=== PATIENT | male | born 1975 | race American Indian/Alaskan Native ===

== ENCOUNTER 2017-05-16 11:36 | Observation (INO) | payer OTHER ==
[2017-05-16 12:16] VITALS: BMI 24.0
[2017-05-16] MEDS ORDERED: Sodium Chloride 0.9% 1,000 ML IV STA ×2 (12:39→13:38)
--- NOTE | 2017-05-16 12:53 | ED PDOC ---
Arrival/HPI - General Chief Complaint: Flu-like Symptoms Time Seen by Provider: 05/16/17 12:38 Historian: Patient - History of Present Illness Narrative History of Present Illness (Text): 05/16/17 12:52 A 41 year old male, with HIV, CD4 and viral load unknown, presents to the emergency department complaining of generalized myalgias for the past 3 days. Patient notes decreased PO intake and episodes of non-bloody diarrhea. He reports sick contact at home, states his partner had similar symptoms 1 week ago. Patient denies any fever, chills, nausea, vomiting, abdominal pain, chest pain, shortness of breath, cough, headache, dizziness or any other complaints. Patient did not receive the flu shot this year. 05/16/17 13:46 Time/Duration: Other (3 days) Symptom Course: Unchanged Quality: Other Context: Home Past Medical History - Provider Review Nursing Documentation Reviewed: Yes - Infectious Disease Hx of Infectious Diseases: None - Tetanus Immunization Tetanus Immunization: Up to Date - Past Medical History Past Medical History: No Previous - Cardiac Hx Cardiac Disorders: No - Pulmonary Hx Respiratory Disorders: No - Neurological Hx Neurological Disorder: No - HEENT Hx HEENT Disorder: No - Renal Hx Renal Disorder: No - Endocrine/Metabolic Hx Endocrine Disorders: No - Hematological/Oncological Hx Blood Disorders: No - Integumentary Hx Dermatological Disorder: No - Musculoskeletal/Rheumatological Hx Musculoskeletal Disorders: No - Gastrointestinal Hx Gastrointestinal Disorders: No - Genitourinary/Gynecological Hx Genitourinary Disorders: No - Psychiatric Hx Psychophysiologic Disorder: No Hx Substance Use: Yes (marijuana) - Past Surgical History Past Surgical History: No Previous - Surgical History Hx Musculoskeletal Surgery: Yes (left arm) - Anesthesia Hx Anesthesia: Yes Hx Anesthesia Reactions: No Hx Malignant Hyperthermia: No - Suicidal Assessment Feels Threatened In Home Enviroment: No Family/Social History - Physician Review Nursing Documentation Reviewed: Yes Family/Social History: No Known Family HX Smoking Status: Current Some Days Smoker Hx Alcohol Use: Yes Frequency of alcohol use: Few days per week Hx Substance Use: Yes (marijuana) Allergies/Home Meds Allergies/Adverse Reactions: Allergies No Known Allergies Allergy (Verified 05/16/17 12:16) Home Medications: Home Meds Medication Instructions Recorded Confirmed No Known Home Med 05/16/17 05/16/17 Review of Systems - Physician Review All systems were reviewed & negative as marked: Yes - Review of Systems Constitutional: absent: Fevers, Night Sweats Respiratory: absent: SOB, Cough Cardiovascular: absent: Chest Pain Gastrointestinal: Diarrhea, Appetite Changes (decrease PO intake). absent: Abdominal Pain, Nausea, Vomiting Musculoskeletal: Myalgias Neurological: absent: Headache, Dizziness Physical Exam Vital Signs Reviewed: Yes Vital Signs Temp Pulse Resp BP Pulse Ox 05/16/17 14:22 84 18 108/42 L 100 05/16/17 12:08 99.1 F 109 H 20 90/61 L 97 Temperature: Afebrile Blood Pressure: Hypotensive Pulse: Tachycardic Respiratory Rate: Normal Appearance: Positive for: Well-Appearing, Non-Toxic, Comfortable Pain Distress: None Mental Status: Positive for: Alert and Oriented X 3 - Systems Exam Head: Present: Atraumatic, Normocephalic Pupils: Present: PERRL Extroacular Muscles: Present: EOMI Conjunctiva: Present: Normal Mouth: Present: Moist Mucous Membranes Neck: Present: Normal Range of Motion Respiratory/Chest: Present: Clear to Auscultation, Good Air Exchange. No: Respiratory Distress, Accessory Muscle Use Cardiovascular: Present: Normal S1, S2, Tachycardic. No: Murmurs Abdomen: Present: Normal Bowel Sounds. No: Tenderness, Distention, Peritoneal Signs Back: Present: Normal Inspection Upper Extremity: Present: Normal Inspection. No: Cyanosis, Edema Lower Extremity: Present: Normal Inspection. No: Edema Neurological: Present: GCS=15, CN II-XII Intact, Speech Normal Skin: Present: Warm, Dry, Normal Color. No: Rashes Psychiatric: Present: Alert, Oriented x 3, Normal Insight, Normal Concentration Medical Decision Making ED Course and Treatment: 05/16/17 12:52 Impression: A 41 year old male with generalized myalgias, decrease PO intake and diarrhea Plan: -- Chest xray -- EKG -- Labs -- Rapid flu -- Toradol and IV fluids -- Reassess and disposition Progress Notes: 05/16/17 13:48 EKG shows NSR at 86bpm with LVH. Non specific St changes. Labs show BEATRIS with bun/creatinine of 55/3.3. Now reporting hx of HIV. Flu negative. cxray negative. Stool cultures as well as CD4 and viral load added. Will transfer to med/sx observation under Dr. Palomo. Nephrology and ID consult placed. 05/16/17 15:04 - Lab Interpretations Lab Results: 05/16/17 12:45 05/16/17 12:45 Lab Results 05/16/17 12:45: Sodium 136, Potassium 3.9, Chloride 99, Carbon Dioxide 21, Anion Gap 19, BUN 55 H, Creatinine 3.3 H, Est GFR ( Amer) 25, Est GFR ( Non-Af Amer) 21, Random Glucose 122 H, Calcium 9.5, Phosphorus 4.5, Magnesium 2.1, Total Bilirubin 0.6, AST 39, ALT 26, Alkaline Phosphatase 82, Troponin I < 0.01, Total Protein 8.8 H, Albumin 3.9, Globulin 4.9, Albumin/Globulin Ratio 0.8 L, Lipase 220 05/16/17 12:45: Influenza Typ A,B (EIA) Negative for flu a/b 05/16/17 12:45: WBC 7.8, RBC 4.56, Hgb 12.7 L, Hct 38.4 L, MCV 84.2, MCH 27.9, MCHC 33.1, RDW 14.5, Plt Count 307, MPV 9.3, Gran % 46.1 L, Lymph % (Auto) 35.0 , [place] % (Auto) 18.4 H, Eos % (Auto) 0.1 L, Baso % (Auto) 0.4, Gran # 3.60, Lymph # 2.7, [place] # 1.4 H, Eos # 0.0, Baso # 0.03 I have reviewed the lab results: Yes - RAD Interpretation Radiology Orders: 05/16/17 12:38 CHEST TWO VIEWS (PA/LAT) [RAD] Stat - Medication Orders Current Medication Orders: Sodium Chloride (Sodium Chloride 0.9%) 1,000 mls @ 125 mls/hr IV .Q8H JEANNETTE Discontinued Medications Sodium Chloride (Sodium Chloride 0.9%) 1,000 mls @ 999 mls/hr IV .Q1H1M STA Stop: 05/16/17 13:39 Last Admin: 05/16/17 12:53 Dose: 999 mls/hr eMAR Start Stop Document 05/16/17 12:53 SE (Rec: 05/16/17 12:53 [email or web address] Intravenous Solution Start Date 05/16/17 Start Time 12:53 Sodium Chloride (Sodium Chloride 0.9%) 1,000 mls @ 999 mls/hr IV .Q1H1M STA Stop: 05/16/17 14:38 Last Admin: 05/16/17 14:05 Dose: 999 mls/hr eMAR Start Stop Document 05/16/17 14:05 SE (Rec: 05/16/17 14:05 [email or web address] Intravenous Solution Start Date 05/16/17 Start Time 14:05 Sodium Chloride (Sodium Chloride 0.9%) 1,000 mls @ 100 mls/hr IV .Q10H JEANNETTE Ketorolac Tromethamine (Toradol) 30 mg IVP STAT STA Stop: 05/16/17 12:40 Last Admin: 05/16/17 12:54 Dose: 30 mg MAR Pain Assessment Document 05/16/17 12:54 SE (Rec: 05/16/17 12:54 [email or web address] Pain Reassessment Is this a pain reassessment? No Sleep Is patient sleeping during reassessment? No Presence of Pain Presence of Pain Yes Pain Scale Used Pain Scale Used Numeric IVP Administration Document 05/16/17 12:54 SE (Rec: 05/16/17 12:54 [email or web address] Charges for Administration # of IVP Administrations 1 - Scribe Statement The provider has reviewed the documentation as recorded by the Jessica Durand Provider Scribe Attestation: All medical record entries made by the Scribe were at my direction and personally dictated by me. I have reviewed the chart and agree that the record accurately reflects my personal performance of the history, physical exam, medical decision making, and the department course for this patient. I have also personally directed, reviewed, and agree with the discharge instructions and disposition. Disposition/Present on Arrival - Present on Arrival Any Indicators Present on Arrival: No History of DVT/PE: No History of Uncontrolled Diabetes: No Urinary Catheter: No History of Decub. Ulcer: No History Surgical Site Infection Following: None - Disposition Have Diagnosis and Disposition been Completed?: Yes Diagnosis: Acute kidney injury, Diarrhea Disposition: HOSPITALIZED Disposition Time: 13:48 Patient Plan: Observation Patient Problems: Current Active Problems Problem Status Onset Acute kidney injury Acute Diarrhea Acute Condition: FAIR
[2017-05-16 13:06] LABS: BASO # 0.03 K/mm3 (0.0-2.0); BASO % 0.4 % (0.0-3.0); EOS % 0.1 % (1.5-5.0); GRAN # 3.6 (1.4-6.5); GRAN % 46.1 % (50.0-68.0); HEMOGLOBIN 12.7 g/dL (14.0-18.0); LYMPH # 2.7 (1.2-3.4); MEAN CELL VOLUME 84.2 fl (80.0-105.0); MEAN CORPUSCULAR HEMOGLOBIN 27.9 pg (25.0-35.0); MEAN CORPUSCULAR HGB CONC 33.1 g/dl (31.0-37.0); MEAN PLATELET VOLUME 9.3 fl (7.0-11.0); MONO # 1.4 (0.1-0.6); MONO % 18.4 % (1.0-6.0); RBC 4.56 10^6/uL (3.5-6.1); RED CELL DISTRIBUTION WIDTH 14.5 % (11.5-14.5); WHITE BLOOD COUNT 7.8 10^3/ul (4.5-11.0)
[2017-05-16 13:32] LABS: TROPONIN I < 0.01 ng/mL
[2017-05-16 13:35] LABS: ALB/GLOB RATIO 0.8 (1.1-1.8); ALBUMIN 3.9 g/dL (3.0-4.8); ALT/SGPT 26 U/L (7-56); AST/SGOT 39 U/L (17-59); BLOOD UREA NITROGEN 55 mg/dL (7-21); CALCIUM 9.5 mg/dL (8.4-10.5); GFR AFRICAN-AMERICAN 25; GFR NON-AFRICAN AMERICAN 21; LIPASE 220 U/L (23-300); MAGNESIUM 2.1 mg/dL (1.7-2.2)
[2017-05-16] MEDS ORDERED: Sodium Chloride 0.9% 1,000 ML IV SCH (14:00)
--- NOTE | 2017-05-16 14:32 | CP.PCM.CON ---
History of Present Illness - History of Present Illness History of Present Illness: Initial Nephrology Consultation: Assessment: critical Acute Kidney Injury (N17.9) likely due to GI volume loss, hypotension, acute gastroenteritis HIV Plan No acute need for renal replacement therapy at this time. maintain hemodynamic stable. No ACEI/ARB due to BEATRIS Monitor Input/Output, daily weights and renal function with basic metabolic panel IVF as normal saline @ 125 ml/hr. can give NS bolus as needed if BP low Check urine analysis, spot protein/creatinine , urine sodium/cr and renal sonogram.check CPK, uric acid. Dose meds/antibiotics for reduced GFR. Avoid fleets enema/magnesium based laxatives. Avoid nephrotoxins/NSAIDs/ iodinated contrast (unless needed emergently) Glycemic control Further work up/management as per primary team Thanks for allowing me to participate in care of your patient. Will follow patient with you. Please call if any Qs. d/w team Dr Toribio Gill Office: [phone] Chief Complaint; loose stool HPI: Pt is a 41 M with hx of HIV nont on meds presented with complaints of multiple episode of watery loose stool for last 3 days. had decreased oral intake. renal consult for BEATRIS eval Denies OTC/herbal meds or NSAIDs No recent iodinated contrast exposure. has obvious episodes of low BP. pt not aware about kidney problem in past ROS: Cardiovascular: No chest pain. Pulmonary: No shortness of breath Gastrointestinal: c/o abdominal pain c/o nausea. No vomiting. had loose stool Genitourinary: No pain while urinating. Denies blood in urine. All other negative Physical Examination: General Appearance: Comfortable, in no acute respiratory distress, co-operative . Vitals reviewed and noted as below Head; Atraumatic, normocephalic ENT: no ulcers no thrush. Tongue is midline. Oropharynx: no rash or ulcers. EYES: Pupils are equal, round and reactive to light accommodation. Eye muscles and extraocular movement intact. Sclera is anicteric. Neck; supple no lymphadenopathy, no thyromegaly or bruit Lungs: Normal respiratory rate/effort. Breath sounds bilateral equal and clear Heart: Normal rate. s1s2 normal. No rub or gallop. Extremities: no edema. No varicose veins Neurological: Patient is alert, awake and oriented to person, place and time. No focal deficit. Strength bilateral appropriate and equal Skin: Warm and dry. Normal turgor. No rash. Palpitation: Normal elasticity for age Abdomen: Abdomen is soft. Bowel sounds +. There is no abdominal tenderness, no guarding/rigidity no organomegaly Psych: normal insight and normal affect/mood MSK: no joint tenderness or swelling. Digits and nails normal, no deformity : kidney or bladder not palpable Labs/imaging reviewed. Past medical history, past surgical history, family history, social history, allergy reviewed and noted as below Family hx: no hx of CKD. Rest non-contributory Past Patient History - Infectious Disease Hx of Infectious Diseases: None - Tetanus Immunizations Tetanus Immunization: Up to Date - Past Social History Smoking Status: Current Some Days Smoker - CARDIAC Hx Cardiac Disorders: No - PULMONARY Hx Respiratory Disorders: No - NEUROLOGICAL Hx Neurological Disorder: No - HEENT Hx HEENT Problems: No - RENAL Hx Chronic Kidney Disease: No - ENDOCRINE/METABOLIC Hx Endocrine Disorders: No - HEMATOLOGICAL/ONCOLOGICAL Hx Blood Disorders: No - INTEGUMENTARY Hx Dermatological Problems: No - MUSCULOSKELETAL/RHEUMATOLOGICAL Hx Musculoskeletal Disorders: No - GASTROINTESTINAL Hx Gastrointestinal Disorders: No - GENITOURINARY/GYNECOLOGICAL Hx Genitourinary Disorders: No - PSYCHIATRIC Hx Psychophysiologic Disorder: No Hx Substance Use: Yes (marijuana) - SURGICAL HISTORY Hx Musculoskeletal Surgery: Yes (left arm) - ANESTHESIA Hx Anesthesia: Yes Hx Anesthesia Reactions: No Hx Malignant Hyperthermia: No Meds Allergies/Adverse Reactions: Allergies Allergy/AdvReac Type Severity Reaction Status Date / Time No Known Allergies Allergy Verified 05/16/17 12:16 - Medications Medications: Current Medications Sodium Chloride (Sodium Chloride 0.9%) 1,000 mls @ 999 mls/hr IV .Q1H1M STA Stop: 05/16/17 14:38 Last Admin: 05/16/17 14:05 Dose: 999 mls/hr Sodium Chloride (Sodium Chloride 0.9%) 1,000 mls @ 125 mls/hr IV .Q8H JEANNETTE Results - Vital Signs Recent Vital Signs: Last Vital Signs Temp 99.1 F 05/16/17 12:08 Pulse 84 05/16/17 14:22 Resp 18 05/16/17 14:22 BP 108/42 L 05/16/17 14:22 Pulse Ox 100 05/16/17 14:22 - Labs Result Diagrams: 05/16/17 12:45 05/16/17 12:45
[2017-05-16 15:07] LABS: URIC ACID 10.2 mg/dL (3.5-8.5)
[2017-05-16 15:29] LABS: CK-MB 1.7 ng/mL (0.0-3.6)
[2017-05-16] MEDS: Sodium Chloride 0.9% 1,000 ML IV SCH (15:46)
--- NOTE | 2017-05-16 15:52 | US ---
PROCEDURE: Ultrasound of the Kidneys HISTORY: BEATRIS COMPARISON: None available. TECHNIQUE: Grayscale imaging was performed. FINDINGS: RIGHT KIDNEY: Measures: 11.2 cm. Normal in size, contour and echogenicity. No stone, solid mass lesion or hydronephrosis visualized. LEFT KIDNEY: Measures: 11.4 cm. Normal in size, contour and echogenicity. No stone, solid mass lesion or hydronephrosis visualized. OTHER FINDINGS: None. IMPRESSION: No hydronephrosis or nephrolithiasis.
[2017-05-16 15:58] LABS: URINE BILIRUBIN NEGATIVE (NEGATIVE); URINE BLOOD LARGE (NEGATIVE); URINE GLUCOSE (UA) NEGATIVE (NEGATIVE); URINE LEUKOCYTE ESTERASE NEGATIVE Leu/uL (NEGATIVE); URINE NITRATE NEGATIVE (NEGATIVE); URINE PROTEIN 100 mg/dL (<30 mg/dL); URINE UROBILINOGEN 0.2 E.U./dL (<1 E.U./dL)
[2017-05-16 16:00] LABS: URINE APPEARANCE SL CLOUDY (CLEAR); URINE COLOR YELLOW (YELLOW)
[2017-05-16 16:10] LABS: URINE BACTERIA MANY (NEG); URINE RBC 15 - 20 /hpf (0-2)
[2017-05-16 16:24] LABS: CREATININE,RANDOM URINE 286 mg/dL
--- NOTE | 2017-05-16 16:44 | RAD ---
HISTORY: fatigue COMPARISON: No prior. TECHNIQUE: Chest PA and lateral FINDINGS: LUNGS: No active pulmonary disease. PLEURA: No significant pleural effusion identified. No pneumothorax apparent. CARDIOVASCULAR: Normal. OSSEOUS STRUCTURES: No significant abnormalities. VISUALIZED UPPER ABDOMEN: Normal. OTHER FINDINGS: None. IMPRESSION: No active disease.
--- NOTE | 2017-05-16 17:41 | CARD ---
APPROVED REPORT EKG Measurement Heart [id number] <Conclusion> Normal sinus rhythm Moderate voltage criteria for LVH, may be normal variant Nonspecific ST and T wave abnormality Abnormal ECG
[2017-05-16] MEDS ORDERED: Influenza Vaccine 60 mcg/0.5 mL SYR (4YR UP) IM ONE (18:08)
[2017-05-16] MEDS ORDERED: Pneumococcal 23-Valent Vaccine IM ONE (18:08)
--- NOTE | 2017-05-17 00:10 | HP ---
HISTORY OF PRESENT ILLNESS: I was called to the Emergency Room to admit this young man, who does not have a doctor. He is a 41-year-old man with HIV, CD4, viral load unknown, who presents to the Emergency Department complaining of generalized myalgia for the past 3 days. He had decreased p.o. intake and episode of nonbloody diarrhea. He has been sick with contacts at home that has been sick. His partner has similar symptoms a week ago. No nausea or vomiting. No chills. Explosive diarrhea, feels very weak. PAST MEDICAL HISTORY: HIV. He does use marijuana. He has left arm injury. FAMILY HISTORY: He has no known family history. SOCIAL HISTORY: He still smokes cigarettes. He does drink alcohol. He smokes marijuana. ALLERGIES: NO ALLERGIES. MEDICATIONS: No medications. REVIEW OF SYSTEMS: No fevers or night sweats. No acute vision changes or hearing changes. No sore throat. No neck pain. No shortness of breath or cough. No chest pain or palpitations. No nausea or vomiting, but he is having diarrhea, appetite changes, no appetite, some abdominal pain on and off, now some cramping. There is some myalgias. No headache or dizziness. No numbness or tingling. No anxiety or depression. PHYSICAL EXAMINATION: VITAL SIGNS: He has a 99.1 temperature, 109 pulse, 20 respiratory rate, 90/61 blood pressure, 97% O2 sat on room air. HEENT: Head is atraumatic and normocephalic. Extraocular muscles are intact. Pupils are equal and reactive to light and accommodation. GENERAL: He is alert and oriented x3, well-appearing, mildly toxic from being little bit weak from the diarrhea, little dehydrated. HEART: Regular rate. Normal S1 and S2. LUNGS: Clear to auscultation bilaterally with decreased breath sounds. Poor inspiration. ABDOMEN: Soft and nontender. Positive bowel sounds. No guarding. No rebound. No CVA tenderness. No palpable masses. EXTREMITIES: Have no edema. He moves all four extremities well. NEUROLOGIC: GCS is 15. Cranial nerves II through XII grossly intact. Speech is normal. Alert and oriented x3. SKIN: Warm and dry. No apparent rashes or ulcers appreciated. LYMPHATICS: Thyroid is midline. No palpable appreciable lymphadenopathy. LABORATORY DATA: He has influenza negative, 136 sodium, potassium 3.9, BUN 55, creatinine 3.3, which is quite up for him. His GFR is 21, sugar is 122, calcium is 9.5, phosphorus is 4.5, magnesium is 2.1, total bilirubin is 0.6, AST is 39, ALT is 26, alkaline phosphatase is 82. Troponin I is less than 0.01. Total protein is 8.8, albumin is 3.9, globulin is 4.9, lipase is 220. White count 7.8, hemoglobin 12.7, hematocrit 38.4, platelets of 309. ASSESSMENT AND PLAN: He is going to have a consult with Renal and Infectious Disease. We are going to hydrate him with IV fluids. We are going to feed him. We are going to hopefully get him better in the next 24 hours, have an ultrasound of the kidneys. We are going to get Infectious Disease to evaluate his HIV and his lab test and also Renal to help him with his kidney function to see if he get improved in the next 24 hours. He is on observation. Waltre Palomo DO
[2017-05-17] MEDS: Sodium Chloride 0.9% 1,000 ML IV SCH (01:19)
[2017-05-17 07:29] LABS: BASO # 0.06 K/mm3 (0.0-2.0); BASO % 0.8 % (0.0-3.0); EOS % 0.1 % (1.5-5.0); GRAN # 2.91 (1.4-6.5); GRAN % 39.6 % (50.0-68.0); LYMPH # 3.2 (1.2-3.4); LYMPH % 43.1 % (22.0-35.0); MEAN CELL VOLUME 85.2 fl (80.0-105.0); MEAN CORPUSCULAR HEMOGLOBIN 27.4 pg (25.0-35.0); MEAN CORPUSCULAR HGB CONC 32.2 g/dl (31.0-37.0); MEAN PLATELET VOLUME 9.2 fl (7.0-11.0); MONO # 1.2 (0.1-0.6); MONO % 16.4 % (1.0-6.0); RBC 3.65 10^6/uL (3.5-6.1); RED CELL DISTRIBUTION WIDTH 14.7 % (11.5-14.5); WHITE BLOOD COUNT 7.4 10^3/ul (4.5-11.0)
[2017-05-17 07:43] LABS: ALB/GLOB RATIO 0.7 (1.1-1.8); ALBUMIN 3.1 g/dL (3.0-4.8); ALT/SGPT 23 U/L (7-56); AST/SGOT 33 U/L (17-59); BLOOD UREA NITROGEN 28 mg/dL (7-21); CALCIUM 8.3 mg/dL (8.4-10.5); GFR AFRICAN-AMERICAN > 60; GFR NON-AFRICAN AMERICAN 52
[2017-05-17 08:54] VITALS: BP 106/53; PULSE 81; RESP 20; TEMP 99; O2SAT 97
[2017-05-17] MEDS ORDERED: cefTRIAXone 1 gm 1 GM/100 ML BAG IVPB SCH (10:45)
[2017-05-17 11:36] LABS: % CD4 (T HELPER CELL) 13 Percent (30-61); % CD8 (SUPPRESSOR T CELL) 57 Percent (12-42); ABSOLUTE CD4 CELLS 409 Cells/mcL (490-1740); ABSOLUTE CD8 CELLS 1785 Cells/mcL (180-1170); ABSOLUTE LYMPHOCYTES 3116 Cells/mcL (850-3900); HELPER/SUPPRESSOR RATIO 0.23 Ratio (0.86-5.00)
[2017-05-17] MEDS ORDERED: metroNIDAZOLE IV 500 mg/100 ml 500 MG/100 ML BAG IVPB SCH (14:00)
--- NOTE | 2017-05-18 03:47 | DS ---
HOSPITAL COURSE: He is doing much better this morning. He is feeling well. No pain. He is eating. He is drinking. He is comfortable. He is on IV fluids. PHYSICAL EXAMINATION: VITAL SIGNS: Temperature 99.1, 81 pulse, 106/53 blood pressure, 20 respiratory rate, 97% O2 sat on room air. HEENT: Head is atraumatic and normocephalic. HEART: Regular rate. LUNGS: Clear to auscultation. ABDOMEN: Soft. EXTREMITIES: No edema. LABORATORY DATA: He has 7.4 white count, 10 hemoglobin, 31.1 hematocrit, and 301,000 platelets. He has 140 of sodium, calcium is 4.1, BUN is down to 28, creatinine is down to 1.5 in less than 24 hours, and GFR is up to 52. He is very dehydrated. His sugar is 89, calcium is 8.3, phosphorus 2.8, magnesium 2, total bilirubin is 0.5, AST is 33, ALT is 33, alkaline phosphatase 53, total protein is 7.2. He also has urinary tract infection with many bacteria. ASSESSMENT AND PLAN: He looks good, he feels good, and wants to go home. He will be put on Cipro 500 mg twice a day. He is going to be followed up on the outpatient by his primary care doctor. He will drink water, water, water everyday, and do not let himself get dehydrated, and he will take the antibiotics for seven days and follow up with his primary care doctor. The patient has had dehydration, acute kidney injury, urinary tract infection, and history of human immunodeficiency virus. Walter Palomo DO
== END 2017-05-17 10:40 | disposition home or self-care (01) ==
LOC: ED 11:36 → ERH 13:52 → 5RSO 16:54
PROVIDERS: ADMIT Family Medicine; ATTEND Family Medicine
DX: K52.9 Noninfective gastroenteritis and colitis, unspecified (principal); N17.9 Acute kidney failure, unspecified; F12.90 Cannabis use, unspecified, uncomplicated; F17.210 Nicotine dependence, cigarettes, uncomplicated; Z21 Asymptomatic human immunodeficiency virus [HIV] infection status; R40.2412 Glasgow coma scale score 13-15, at arrival to emergency department
CPT/HCPCS: 36415; 71046; 76770; 80053; 81001; 82550; 82553; 82570; 83690; 83735; 84100; 84145; 84156; 84300; 84484; 84550; 85025; 85027; 86360; 87040; 87324; 87536; 87804; 93005; 96361; 96374; 99285; G0378; J1885; J7040